=== PATIENT | female | born 1985 | race Caucasian/White ===

== ENCOUNTER 2020-12-01 02:05 | Outpatient (CLI) | payer MEDICAID | END 2020-12-01 02:06 | disposition critical access hospital (66) | LOC: EMS 02:05 | DX: R42 Dizziness and giddiness (principal) | CPT/HCPCS: A0425; A0429 ==

== ENCOUNTER 2020-12-01 02:21 | Emergency (ER) | payer SELFPAY ==
[2020-12-01 02:27] VITALS: BP 124/88
== END 2020-12-01 04:20 | disposition left against medical advice (07) ==
LOC: ED 02:21
DX: Z53.21 Procedure and treatment not carried out due to patient leaving prior to being seen by health care provider (principal)

== ENCOUNTER 2021-04-27 17:41 | Outpatient (CLI) | payer MEDICAID | END 2021-04-27 17:42 | disposition critical access hospital (66) | LOC: EMS 17:41 | DX: R06.02 Shortness of breath (principal) | CPT/HCPCS: A0425; A0429; A0999 ==

== ENCOUNTER 2021-04-27 17:57 | Emergency (ER) | payer MEDICAID ==
--- NOTE | 2021-04-27 18:19 | ED Physician Documentation ---
History of Present Illness - Stated complaint Stated Complaint: SOA - History obtained from History obtained from: Patient - Additonal information Additional information: This is a 35-year-old female with a past medical history of polysubstance abuse who was brought in by EMS after being contacted by the Police Department will [facility]. When police arrived she complained of shortness of breath therefore was brought in by EMS. She is a poor historian and When asked why she was here she asked me if Seroquel and Haldol or Klonopin make you short of breath then she states that her mother has some type of heart failure and fluid in her lungs though she states that she herself has not been diagnosed with this problem. She has a grossly positive review of systems including chest pain, shortness of breath, abdominal pain, nausea vomiting diarrhea but denies fever chills, denies injuries. She Does not know she is . She states that her partner was arrested by the police and she is angry at them for having him incarcerated. Review of Systems Unable to obtain: Other Constitutional: reports: Reviewed and negative Eyes: reports: Reviewed and negative Ears: reports: Reviewed and negative Nose: reports: Reviewed and negative Throat: reports: Reviewed and negative Cardiac: reports: Chest pain / pressure Respiratory: reports: Dyspnea GI: reports: Abdominal Pain, Nausea, Vomiting, Constipation, Diarrhea : reports: Reviewed and negative Musculoskeletal: reports: Reviewed and negative Neurologic: reports: Reviewed and negative Psychiatric: reports: Reviewed and negative Endocrine: reports: Reviewed and negative PD PAST MEDICAL HISTORY - Past Medical History Past Medical History: Yes Psych: Other (Polysubstance abuse) - Present Medications Home Medications: Ambulatory Orders Medication Instructions Recorded Confirmed No Known Home Medications 12/01/20 12/01/20 - Allergies Allergies/Adverse Reactions: Allergies Allergy/AdvReac Type Severity Reaction Status Date / Time codeine Allergy Severe Anaphylaxis Verified 04/27/21 18:28 Penicillins Allergy Unknown Verified 04/27/21 18:28 hydrocodone AdvReac Severe Emesis Verified 04/27/21 18:28 PD ED PE NORMAL - Vitals Vital signs reviewed: Yes - General General: Alert and oriented X 3, No acute distress, Other (Patient is disheveled, she does not have any shoes on, she is wearing a tank top though it is raining and cool outside. She is eating a sandwich and drinking a soda without difficulty.) - HEENT HEENT: Atraumatic, Moist mucous membranes, Pharynx benign - Neck Neck: Supple, no meningeal sign, No JVD - Cardiac Cardiac: RRR, No murmur, No gallop, No rub - Respiratory Respiratory: No respiratory distress, Clear bilaterally - Abdomen Abdomen: Normal bowel sounds, Soft, Non tender, Non distended - Derm Derm: Normal color, Warm and dry, No rash - Extremities Extremities: No deformity, No tenderness to palpate, Normal ROM s pain - Neuro Neuro: Alert and oriented X 3 Eye Opening: Spontaneous Motor: Obeys Commands Verbal: Oriented GCS Score: 15 - Psych Psych: Other (Appears to possibly under the influence of drugs or medication.) Results - Vitals Vitals: Vital Signs - 24 hr 04/27/21 04/27/21 18:23 18:45 Temperature 36.9 C Heart Rate 94 63 Respiratory 18 22 Rate Blood Pressure 110/77 119/79 O2 Saturation 100 100 Oxygen O2 Source Room air - Labs Labs: Laboratory Tests 04/27/21 04/27/21 04/27/21 18:26 18:26 18:26 WBC 10.5 RBC 4.70 Hgb 14.0 Hct 43.1 MCV 91.7 MCH 29.8 MCHC 32.5 RDW 15.0 Plt Count 329 MPV 9.7 Neut # (Auto) 6.5 Lymph # (Auto) 2.9 Alfalfa # (Auto) 0.8 Eos # (Auto) 0.2 Baso # (Auto) 0.1 Absolute Nucleated RBC 0.00 Nucleated RBC % 0.0 Sodium 140 Potassium 3.6 Chloride 106 Carbon Dioxide 25 Anion Gap 9.0 BUN 11 Creatinine 0.5 Estimated GFR (MDRD) 141 Glucose 118 H Calcium 9.7 Troponin I High Sens 2.9 PD MEDICAL DECISION MAKING - ED course Complexity details: reviewed old records, reviewed results, re-evaluated patient, considered differential, d/w patient ED course: Patient presented as above with chest pain and shortness of breath though answered in the affirmative for most of review of systems without providing any details. We obtained lab evaluation which was reassuring, troponins negative, EKG is nonischemic, chest x-ray is negative. Patient's vital signs are normal and she is oxygenating 100% on room air. She ate a sandwich and soda here without difficulty. Will discharge home, patient is not on police hold. Heart score 0, perc -. Departure - Departure Disposition: Home, Self Care Clinical Impression: Chest pain Qualifiers: Chest pain type: other chest pain Qualified Code(s): R07.89 - Other chest pain; R07.8 - Other chest pain Condition: Good
[2021-04-27 18:33] LABS: BASOPHILS # (AUTO) 0.1 10^3/uL (0.0-0.1); BASOPHILS % (AUTO) 0.7 %; EOSINOPHILS # (AUTO) 0.2 10^3/uL (0.0-0.7); EOSINOPHILS % (AUTO) 1.4 %; HCT - HEMATOCRIT 43.1 % (37.0-47.0); LYMPHOCYTES # (AUTO) 2.9 10^3/uL (1.5-3.5); MEAN CORPUSCULAR HEMOGLOBIN 29.8 pg (27.0-31.0); MEAN CORPUSCULAR HGB CONC 32.5 g/dL (32.0-36.0); MEAN CORPUSCULAR VOLUME 91.7 fL (81.0-99.0); MEAN PLATELET VOLUME 9.7 fL (7.9-10.8); MONOCYTES # (AUTO) 0.8 10^3/uL (0.0-1.0); NEUTROPHILS # (AUTO) 6.5 10^3/uL (1.5-6.6); NEUTROPHILS % (AUTO) 61.6 %; PLT - PLATELET COUNT 329 10^3/uL (130-450); WHITE BLOOD COUNT 10.5 x10^3/uL (4.8-10.8)
[2021-04-27 18:45] LABS: CALCIUM 9.7 mg/dL (8.5-10.3); CREATININE 0.5 mg/dL (0.4-1.0); POTASSIUM 3.6 mmol/L (3.5-5.0)
--- NOTE | 2021-04-27 18:59 | XRAY Report ---
PROCEDURE: Chest 1 View X-Ray INDICATIONS: chest pain COMMENTS: Chest pain PRIORS: none TECHNIQUE: One view of the chest was acquired. COMPARISON: None FINDINGS: Surgical changes and devices: None. Lungs and pleura: No pleural effusions or pneumothorax. Lungs are clear. Mediastinum: Mediastinal contours appear normal. Heart size is normal. Bones and chest wall: No suspicious bony lesions. Overlying soft tissues appear unremarkable. IMPRESSION: No acute abnormality of the chest. Reviewed by: Aramis Shane on 04/27/2021 6:58 PM PDT Approved by: Aramis Shane on 04/27/2021 6:58 PM PDT Station ID: [id number]
[2021-04-27 19:35] VITALS: BP 118/72
[2021-04-27 19:43] LABS: HCG,QUALITATIVE BLOOD NEGATIVE
== END 2021-04-27 19:34 | disposition home or self-care (01) ==
LOC: EDUNIT# → ED 17:57
DX: R07.89 Other chest pain (principal)
CPT/HCPCS: 36415; 80048; 84484; 84703; 85025; 93005; 99283; 99284